=== PATIENT | female | born 1980 | race Caucasian/White ===

== ENCOUNTER 2017-12-22 12:12 | Emergency (ER) | payer OTHER ==
[~2017-12-22] VITALS: Ht 170.2 cm; Wt 86.1 kg
[2017-12-22] MEDS ORDERED: TRAM50TA2 PO (13:22)
[2017-12-22] MEDS ORDERED: METH500T97 PO (13:22)
[2017-12-22] MEDS ORDERED: MORP15TA PO (13:22)
[2017-12-22] MEDS ORDERED: VENL37.52 PO (13:22)
[2017-12-22] MEDS ORDERED: OXYC10TA6 PO (13:22)
[2017-12-22] MEDS ORDERED: SODIUM CHLORIDE 0.9% 1,000 ML IV ONE (13:27)
[2017-12-22] MEDS ORDERED: ONDANSETRON 2MG/ML, 2ML IVPush ONE (13:30)
[2017-12-22] MEDS ORDERED: SODIUM CHLORIDE 0.9% 1,000ML IVBOLUS ONE (13:30)
[2017-12-22 13:43] VITALS: BP 131/82
[2017-12-22 13:50] LABS: BASOPHILS # (AUTO) 0.08 x10^3/uL (0-0.1); BASOPHILS % (AUTO) 1 % (0-1); EOSINOPHILS # (AUTO) 0.01 x10^3/uL (0-0.4); EOSINOPHILS % (AUTO) 0 % (1-7); LYMPHOCYTES # (AUTO) 2.97 x10^3/uL (1-3.4); LYMPHOCYTES % (AUTO) 25 % (22-44); MD NO; MEAN CORPUSCULAR HEMOGLOBIN 30.9 pg (27.0-34.8); MEAN CORPUSCULAR HGB CONC 32.9 g/dL (32.4-35.8); MEAN PLATELET VOLUME 10.1 fL (7.4-10.4); MONOCYTES # (AUTO) 0.57 x10^3/uL (0.2-0.8); MONOCYTES % (AUTO) 5 % (2-9); NEUTROPHILS # (AUTO) 8.39 x10^3/uL (1.8-6.8); NEUTROPHILS % (AUTO) 70 % (42-75); PLATELET COUNT 238 x10^3/uL (130-400); RED BLOOD COUNT 4.74 x10^6/uL (3.82-5.3); RED CELL DISTRIBUTION WIDTH 13.4 % (9.6-15.2)
[2017-12-22 14:03] LABS: ALANINE AMINOTRANSFERASE 17 U/L (12-78); ALBUMIN 3.9 g/dL (3.4-5.0); ANION GAP 7 mmol/L (5-15); CALCIUM 8.9 mg/dL (8.5-10.1); CHLORIDE 104 mmol/L (98-107); SALICYLATE LEVEL 3.8 mg/dL (2.8-20.0)
[2017-12-22 14:05] LABS: ALKALINE PHOSPHATASE 76 U/L (45-117); BILIRUBIN,TOTAL 0.5 mg/dL (0.2-1.0); TOTAL PROTEIN 7.8 g/dL (6.4-8.2)
[2017-12-22 14:06] LABS: ACETAMINOPHEN < 2 mcg/mL (10-30)
[2017-12-22 14:50] LABS: MICROSCOPIC INDICATED
[2017-12-22 14:55] LABS: AMPHETAMINE SCREEN, URINE Negative (Negative); BARBITURATE SCREEN, URINE Negative (Negative); BENZODIAZEPINE SCREEN, URINE Negative (Negative); CANNABINOID SCREEN, URINE Positive (Negative); COCAINE SCREEN, URINE Negative (Negative); METHADONE SCREEN, URINE Negative (Negative); OPIATE SCREEN, URINE Positive (Negative)
[2017-12-22 15:03] LABS: CULTURE INDICATED? NO
== END 2017-12-22 15:04 | disposition home or self-care (01) ==
LOC: ED 14:40
DX: F32.9 Major depressive disorder, single episode, unspecified (principal); R42 Dizziness and giddiness
CPT/HCPCS: 36415; 80053; 80307; 80329; 81001; 85025; 93005; 96360; 99285; J7030; G0480